=== PATIENT | female | born 2000 | race Caucasian/White ===

== ENCOUNTER 2023-02-01 16:21 | Emergency (ER) | payer OTHER, SELFPAY ==
[2023-02-01 16:28] VITALS: BP 132/71; PULSE 109; RESP 20; TEMP 36.9; O2SAT 99
--- NOTE | 2023-02-01 16:34 | ED.URI ---
HPI - URI/Sore Throat General Chief Complaint: Upper Respiratory Infection Stated Complaint: coughing/ear/trouble breathing Time Seen by Provider: 02/01/23 16:34 Source: patient Mode of arrival: ambulatory Limitations: no limitations History of Present Illness HPI Narrative: 22 y/o female presented for c/o sob with talking and walking up stairs since yesterday. Endorses sinus congestion and right ear pressure. Not taking anything for symptoms. Denies sick contacts. Denies cp, palpitations, fatigue, n/v/d/f/c. Related Data Allergies Allergy/AdvReac Type Severity Reaction Status Date / Time No Known Allergies Allergy Verified 02/01/23 16:46 Review of Systems Review of Systems: CONSTITUTIONAL: Denies body aches, fever, chills, or sweats. EYES: Denies visual changes, redness, or discharge. ENT: Reports rhinorrhea, congestion, Denies sore throat, or otalgia. CARDIOVASCULAR: Denies chest pain, palpitations, or edema. RESPIRATORY: Reports cough, sob, denies wheezing. GASTROINTESTINAL: Denies abdominal pain, nausea, vomiting, or diarrhea. GENITOURINARY: Denies dysuria or hematuria. SKIN: Denies rash, itching, or wounds. MUSCULOSKELETAL: Denies back pain, joint pain, or myalgia. NEUROLOGIC: Denies headache, numbness, tingling, or weakness. All systems reviewed & are unremarkable except as noted in HPI and below PMFSH Past Medical History Medical History (Updated 02/01/23 @ 17:11 by Chaparrita Mays, CONSTRUCTION OPERATIONS MANAGER) No pertinent past medical history Comments At time of signature, I have reviewed and agree with nursing past medical, surgical, social and family history unless otherwise noted. Please see nursing chart for further information. There is no relevant family history pertinent to the presenting complaint Exam Narrative: GENERAL: Well-appearing, in no acute distress. EYES: EOMI. No redness or drainage. Conjunctivae normal. ENT: Mucous membranes pink and moist. Significant nasal congestion TMs normal bilaterally. Throat normal. Uvula midline. NECK: Normal AROM. Supple. CHEST: No respiratory distress. Lungs clear to all [place]. No cough. HEART: Regular rate and rhythm. No murmur appreciated. ABDOMEN: Soft, nontender, nondistended, normal active bowel sounds. EXTREMITIES: Normal range of motion. No edema. SKIN: Warm, dry, no rash. Capillary refill normal. Normal skin turgor. NEURO: Alert and oriented x3. Gait steady. PSYCH: Normal affect. Course Course Emergency Course: Patient is aware of diagnosis, understands and agrees to treatment plan. Anticipatory guidance given. Patient agrees to follow-up as directed and is aware of reasons to seek care at the emergency department. Portions of this record may have been created with voice recognition software Level of Care: Express Care Visit Vital Signs Vital signs: Vital Signs Temperature 98.5 F 02/01/23 16:28 Pulse Rate 109 H 02/01/23 16:28 Respiratory Rate 20 02/01/23 16:28 Blood Pressure 132/71 02/01/23 16:28 Pulse Oximetry 99 02/01/23 16:28 Oxygen Delivery Room Air 02/01/23 16:28 Temperature 98.5 F 02/01/23 16:28 Pulse Rate 109 H 02/01/23 16:28 Respiratory Rate 20 02/01/23 16:28 Blood Pressure 132/71 02/01/23 16:28 Pulse Oximetry 99 02/01/23 16:28 Oxygen Delivery Room Air 02/01/23 16:28 MDM - URI/Sore Throat MDM Narrative Medical decision making narrative: Advised ER if she is feeling shortness of breath, however she states she will consider going later. She denies heart racing shortness of breath or rest. She is requesting a work note. She is overall well appearing. Discussed physical exam findings. Advised supportive measures and signs/symptoms to go to the ER. Pt is appropriate for outpt treatment and f/u. Differential Diagnosis Differential diagnosis: Likely upper respiratory infection, otitis media, sinusitis, viral infection, bronchitis, influenza and pharyngitis Discharge Plan Discha
== END 2023-02-01 16:47 | disposition home or self-care (01) ==
PROVIDERS: Emergency Provider Nurse Practitioner Family; PCP Pediatrics
DX: J06.9 Acute upper respiratory infection, unspecified (principal)
CPT/HCPCS: 99213; G0463

== ENCOUNTER 2023-08-27 13:51 | Emergency (ER) | payer OTHER, SELFPAY ==
[2023-08-27 14:05] VITALS: BP 155/73; PULSE 76; RESP 16; TEMP 36.8; O2SAT 96
--- NOTE | 2023-08-27 14:32 | ED.EAR ---
HPI - Ear Problem General Chief complaint: Ear Stated complaint: L ear pain Time Seen by Provider: 08/27/23 14:20 Source: patient, RN notes reviewed and old records reviewed Mode of arrival: ambulatory Limitations: no limitations History of Present Illness HPI Narrative: 22 year old female presents to [facility] care with friend and 3 children with complaints of 2 day history of left ear pain. Patient states some sinus congestion and drainage, denies any sore throat cough or any shortness of breath. Patient reports that she has not taken any OTC medications for her symptoms. Patient reports no known ill contacts no fevers, chills or body aches. MD Complaint: ear pain Location: left ear Duration: constant Severity: moderate Discharge from ear: Reports no Treatment prior to arrival: none Related Data Allergies Allergy/AdvReac Type Severity Reaction Status Date / Time No Known Allergies Allergy Verified 02/01/23 16:46 Review of Systems Review of Systems: CONSTITUTIONAL: Denies malaise, chills, sweats, or fever. EYES: Denies visual changes, redness, or discharge. ENT: Reports rhinorrhea, congestion, no sinus pain, left otalgia and no sore throat. CARDIOVASCULAR: Denies chest pain, palpitations, or edema. RESPIRATORY: Reports no cough.? Denies dyspnea. GASTROINTESTINAL: Denies abdominal pain, nausea, vomiting, diarrhea SKIN: Denies rash or itching. MUSCULOSKELETAL: Denies myalgia. NEUROLOGIC: Denies headache. All systems reviewed & are unremarkable except as noted in HPI and below PMFSH Past Medical History Medical History No pertinent past medical history Surgical History Surgical History History of cholecystectomy Hx of tonsillectomy Social History Social History Smoking status: Never smoker Alcohol intake: never Substance use: never Living arrangements: with family Gender identity (if verbalized by the patient): Female Comments At time of signature, agree with nursing past medical, surgical, social and family history. There is no relevant family history pertinent to the presenting complaint Exam Narrative: GENERAL: Well-appearing, well-nourished, obese,and in no acute distress. HEAD: Normocephalic EYES: PERRLA, conjunctivae clear ENT: Nares clear, turbinates edematous and erythematous, clear discharge. Mucous membranes moist.Left TM red and bulging. Right TM pearly matson with dull light reflex bilaterally; no tragal tenderness. Oropharynx erythematous without lesions. Tonsils not present and throat without exudate, no drooling, no hoarseness, no trismus, uvula midline. NECK: Supple. No lymphadenopathy CHEST: Clear to auscultation, breath sounds equal. No wheezing, rhonchi, rales, or stridor. No respiratory distress, speaks in full sentences.no cough noted SAO2 96% on room air HEART: Regular rate and rhythm. No murmur heard. SKIN: Warm, dry, no rash. NEURO: Alert and oriented x3. PSYCH: Normal mood and affect Course Course Emergency Course: Patient is aware of diagnosis, understands and agrees to treatment plan.? Anticipatory guidance given.? Patient agrees to follow-up as directed and is aware of reasons to seek care at the emergency department. Portions of this record may have been created with voice recognition software Level of Care: Express Care Visit Vital Signs Vital signs: Vital Signs Temperature 36.8 C 08/27/23 14:05 Pulse Rate 76 08/27/23 14:05 Respiratory Rate 16 08/27/23 14:05 Blood Pressure 155/73 H 08/27/23 14:05 Pulse Oximetry 96 08/27/23 14:05 Oxygen Delivery Room Air 08/27/23 14:05 Temperature 36.8 C 08/27/23 14:05 Pulse Rate 76 08/27/23 14:05 Respiratory Rate 16 08/27/23 14:05 Blood Pressure 155/73 H 08/27/23 14:05 Pulse Oximetry 96 0
== END 2023-08-27 14:41 | disposition home or self-care (01) ==
PROVIDERS: Emergency Provider Registered Nurse; PCP Pediatrics
DX: H66.92 Otitis media, unspecified, left ear (principal)
CPT/HCPCS: 99213; G0463

== ENCOUNTER 2023-12-17 13:43 | Emergency (ER) | payer OTHER, SELFPAY ==
[2023-12-17 13:50] VITALS: BP 147/76; PULSE 100; RESP 20; TEMP 38.3; O2SAT 98
--- NOTE | 2023-12-17 13:50 | ED.URI ---
HPI - URI/Sore Throat General Stated Complaint: covid positive History of Present Illness HPI Narrative: PATIENT PRESENTS TO URGENT CARE FOR A WORK NOTE. PATIENT STATES HE HAD A POSITIVE HOME COVID-19 TEST TODAY AND NEEDS A NOTE FOR WORK. PATIENT STATES HER SYMPTOMS HAVE BEEN GOING ON FOR 2 DAYS NO SHORTNESS OF BREATH NO CHEST PAIN. NASAL CONGESTION. MOM DOES REPORT NAUSEA BUT IS TOLERATING LIQUIDS WELL. NO DIARRHEA NO ABDOMINAL PAIN MOM STATES SHE IS 10 WEEKS BUT HAS NO -RELATED ISSUES. NO VAGINAL DISCHARGE NO VAGINAL BLEEDING NO ABDOMINAL PAIN NORMAL MOVEMENT. Related Data Allergies Allergy/AdvReac Type Severity Reaction Status Date / Time No Known Allergies Allergy Verified 02/01/23 16:46 Review of Systems Review of Systems: CONSTITUTIONAL: DENIES CHILLS, OR SWEATS. REPORTS FEVER AND GENERALIZED BODY ACHES EYES: DENIES VISUAL CHANGES, REDNESS, OR DISCHARGE. ENT: DENIES OTALGIA. REPORTS NASAL CONGESTION RUNNY NOSE AND SORE THROAT CARDIOVASCULAR: DENIES CHEST PAIN, PALPITATIONS, OR EDEMA. RESPIRATORY: DENIES DYSPNEA. REPORTS OCCASIONAL COUGH GASTROINTESTINAL: DENIES ABDOMINAL PAIN, NAUSEA, VOMITING, OR DIARRHEA. GENITOURINARY: DENIES DYSURIA OR HEMATURIA. SKIN: DENIES RASH OR ITCHING. MUSCULOSKELETAL: DENIES BACK PAIN, JOINT PAIN, OR MYALGIA. REPORTS GENERALIZED BODY ACHES NEUROLOGIC: DENIES HEADACHE, NUMBNESS, OR WEAKNESS. PSYCHIATRIC: DENIES ANXIETY OR DEPRESSION. [facility] Past Medical History Medical History No pertinent past medical history Surgical History Surgical History History of cholecystectomy Hx of tonsillectomy Social History Social History Smoking status: Never smoker Alcohol intake: never Substance use: never Living arrangements: with family Gender identity (if verbalized by the patient): Female Comments AT TIME OF SIGNATURE, AGREE WITH NURSING PAST MEDICAL, SURGICAL, SOCIAL AND FAMILY HISTORY. THERE IS NO RELEVANT FAMILY HISTORY PERTINENT TO THE PRESENTING COMPLAINT Exam Narrative: THE PATIENT IS A WELL-DEVELOPED, WELL-NOURISHED IN NO ACUTE DISTRESS. SKIN: SKIN IS WARM AND DRY WITHOUT ERYTHEMA, SWELLING OR EXUDATE. THERE IS GOOD TURGOR. NO TENTING. HEAD: ATRAUMATIC. NORMOCEPHALIC. NO TEMPORAL OR SCALP TENDERNESS. EYES: MOIST AND BRIGHT. SCLERA AND CONJUNCTIVAE NORMAL. NO DISCHARGE. PERRLA. EXTRAOCULAR MOTIONS INTACT. GROSS VISUAL ACUITY INTACT. EARS: PINNA IS NORMAL SHAPE AND CONTOUR. CLEAR EXTERNAL AUDITORY CANALS. TM PEARLY MARSH WITH GOOD CONE OF LIGHT, NO ERYTHEMA OR SUPPURATION. BILATERAL CERUMEN NOTED NO GROSS HEARING DEFICIT. NOSE: PINK, MOIST MUCOSA WITH GOOD AIR MOVEMENT. CLEAR RHINORRHEA WITHOUT NASAL FLARING. SEPTUM MIDLINE. MOUTH: MOIST MUCOUS MEMBRANES. THROAT; MILD ERYTHEMA NOTED TO POSTERIOR OROPHARYNX WITH MODERATE POSTNASAL DRAINAGE. WITHOUT EXUDATE OR ULCERATION.. UVULA MIDLINE. NORMAL MOVEMENT OF SOFT PALATE. NECK: SUPPLE AND NONTENDER WITH FULL RANGE OF MOTION WITHOUT DISCOMFORT. NO MENINGEAL SIGNS. LUNGS: EQUAL AND BILATERAL BREATH SOUNDS WITHOUT WHEEZES, RALES OR RHONCHI. CHEST: THE CHEST WALL IS WITHOUT RETRACTIONS OR USE OF ACCESSORY MUSCLES. HEART: HAS A REGULAR RATE AND RHYTHM WITHOUT MURMUR, GALLOPS, CLICK OR RUB. ABDOMEN: SOFT, NONTENDER WITH POSITIVE ACTIVE BOWEL SOUNDS. NO REBOUND TENDERNESS. EXTREMITIES: WITHOUT CYANOSIS, CLUBBING OR EDEMA. EQUAL 2+ DISTAL PULSES AND 2 SECOND CAPILLARY REFILL NOTED. NEUROLOGIC: ALERT, ACTIVE, . THE PATIENT MOVES ALL EXTREMITIES WITH NORMAL MUSCLE STRENGTH. NORMAL MUSCLE TONE IS NOTED. NORMAL COORDINATION IS NOTED. NO FOCAL NEUROLOGICAL FINDINGS NOTED. Course Course Level of Care: Express Care Visit Discharge Plan Discharge Clinical Impression: Positive self-administered antigen test for COVID-19 Patient Disposition: H
== END 2023-12-17 14:10 | disposition home or self-care (01) ==
PROVIDERS: Emergency Provider Nurse Practitioner Family; PCP Pediatrics
DX: O98.511 Other viral diseases complicating pregnancy, first trimester (principal); U07.1 COVID-19; Z3A.10 10 weeks gestation of pregnancy
CPT/HCPCS: 99213; G0463

== ENCOUNTER 2024-12-08 15:09 | Emergency (ER) | payer OTHER, SELFPAY ==
[2024-12-08 15:10] VITALS: BP 142/75; PULSE 97; RESP 20; TEMP 36.8; O2SAT 100
--- OUTSIDE RECORDS SUMMARY | 2024-12-08 15:11 | XMS_ITS | Clinical Summary ---
Author Organization [facility] Address [address] [place] [address] Phone Care Team Providers Care Er Medical Technician Name Role Phone Provider, None Primary Care Provider Unavailabl e Allergies No known active allergies Medications No known medications Social History Tobacco Use Types Packs/Day Years Used Date Smoking Tobacco: Never Smokeless Tobacco: Never Tobacco Cessation:Counseling Given: Not Answered Alcohol Use Standard Drinks/Week Comments Not Currently 0 (1 standard drink = 0.6 oz pur e alcohol) Sexually Active Control Partners Comments Yes Comments No Sex and Gender Information Value Date Recorded Sex Assigned at Not on file Legal Sex Female 6:55 PM CDT Gender Identity Not on file Sexual Orientation Not on file Last Filed Vital Signs Vital Sign Reading Time Taken Comments Blood Pressure 142/71 02/03/2023 9:46 PM CDT Pulse 91 02/03/2023 9:46 PM CDT Temperature 37.6 C (99.6 F) 02/03/2023 9:46 PM CDT Respiratory Rate 16 02/03/2023 9:46 PM CDT Oxygen Saturation 98% 02/03/2023 9:46 PM CDT Inhaled Oxygen Concentration - - Weight 81.6 kg (180 lb) 02/03/2023 7:04 PM CDT Height 167.6 cm (5' 6) 02/03/2023 7:04 PM CDT Body Mass Index 29.05 02/03/2023 7:04 PM CDT Plan of Treatment Health Maintenance Due Date Last Done Comments Hepatitis C Virus (HCV) Screening 2001 Meningococcal B Immunization (1 of 2 - Standard) 2017 Pap Smear 2022 SARS-COV-2 Immunization () 12/24/2023 02/16/2021, 01/19/2021 Influenza Immunization (#1) 2024 10/0 10/2020, 02/17/2020, 02/28/2019, Additional history exists Respiratory Syncytial Virus (RSV) Immunization (Adult) (1 - 1-dose 75+ series) 2076 Hepatitis B Immunization Completed 003, 01/23/2002, 2001 Pneumococcal Immunization Combined Aged Out 03/04/2003, 10/21/2002 No longer eligibl e based on patient's age to complete this topic Human Papillomavirus (HPV) Immunization Completed 08/28/2015, 04/28/2015, 02/26/2015 Meningococcal Immunization (ACWY) Completed 12/18/2017, 02/26/2015 DTaP/Tdap/Td Immunization Discontinued 2022, 08/29/2017, 06/11/2012, Additional history exists TdaP Immunization Completed 08/04/2022, , 06/11/2012 Rotavirus Immunization Aged Out No lo nger eligible based on patient's age to complete this topic Insurance MEDICAID [place] Care Teams Er Medical Technician Relationship Specialty Start Date End Date Provider, None [place] PCP - General 02/03/23
--- OUTSIDE RECORDS SUMMARY | 2024-12-08 15:11 | XMS_ITS | Clinical Summary ---
Author Organization [facility] Address [address] [place] [address] Care Team Providers Care Inkjet Operator Name Role Phone Jd Overton MD Unavailable [phone] No, Physician Primary Care Provider [phone] Allergies Active Allergy Reactions Criticality Noted Date Comments Gum Csaptx-Ggktac-Ysux-Alcohol Rash Medium 09/24/2024 No Known Allergies Other (See comments) Low Reaction: Medications No known medications Active Problems Problem Noted Date Diagnosed Date History of gestational diabetes 08/02/2024 Encounter for sterilization 06/26/2024 Moderate cervical dysplasia 02/25/2024 E. 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 I have discussed permanency, alternative contraception, 1% failure rate or less, risks of injury and incidence of regret. Risks of bleeding, infection, anesthesia, risks of injury to surrounding structures discussed. Patient desires laparoscopic bilateral salpingectomy for possible cancer reduction benefit. Nature of procedure and recovery discussed. Will consider 6 weeks . Resolved Problems Problem Noted Date Diagnosed Date Resolved Date Spontaneous vaginal delivery 06/23/2024 08/02/2024 39 weeks gestation of 06/23/2024 08/02/2024 Poor growth affecting management of mother in third trimester 06/07/2024 08/02/2024 Overview (06/19/2024): Suspected but dating by 16 wk US. Normal growth on most recent US. Diet controlled gestational diabetes mellitus (GDM) in third trimester 05/23/2024 08/02/2024 37 weeks gestation of 08/21/2022 01/17/2024 Cholecystitis, acute with cholelithiasis 05/09/2019 05/27/2019 Calculus of gallbladder with acute cholecystitis without obstruction 05/09/20192019 Overview (05/10/2019): Added automatically from request for surgery [id number] Encounters Date Type Department Care Team Description 09/24/2024 4:15 PM CDT Office Visit [facility] [address] [place] [address] [address] [place] [phone] Jd Overton MD Follow-up examination after gynecological surgery (Primary Dx); Moderate cervical dysplasia 09/09/2024 Telephone [facility] [address] [place] [address] [address] [place] [phone] Hemalatha Dixon RN Post Op Rash from Last 3 Months Immunizations Immunization Administration Dates Next Due Influenza, Trivalent, Preservative Free, Intramu scular 03/15/2024 MMR 06/24/2024,11/13/2020 Tdap 05/06/2024 Surgical History Surgery Date Site/Laterality Comments TONSILLECTOMY Tonsillectomy LAPAROSCOPIC CHOLECYSTECTOMY 05/11/2019 SALPINGECTOMY 09/04/2024 Bilateral Medical History Medical History Date Comments Hx Other Medical Tubes in Ears Gonorrhea treated Chlamydia treated Calculus of gallbladder with acute cholecystitis without obstruction 05/09/2019 Added automatically from request for surgery [id number] Family History Medical History Relation Name Comments Arthritis Mother Diabetes Mother's Brother Diabetes Mother's Sister Arthritis Other 1 Family history of Arthritis; Hypertension Other 2 Family history of Hypertension; Diabetes Other 3 Family history of Diabetes mellitus; Relation Name Status Comments Mother Mother's Brother Mother's Sister Other 1 Other 2 Other 3 Social History Tobacco Use Types Packs/Day Years Used Date Smoking Tobacco: Never Smokeless Tobacco: Never Tobacco Cessation:Counseling Given: Not Answered Alcohol Use Standard Drinks/Week Comments No 0 (1 standard drink = 0.6 oz pur e alcohol) Social Connection and Isolation Panel Answer Date Recorded In a typical week, how many times do you talk on the phone with family, friends, or neighbors? More than three times a week 06/22/2024 How often do you get togethe r with friends or relatives? More than three times a week 06/22/2024 How often do you attend chur ch or methodist services? Never 06/22/2024 Do you belong to any clubs o r organizations such as advent groups, unions, fraternal or athletic groups, or school groups? No 06/22/2024 How often do you attend meet ings of the clubs or organizations you belong to? Never 06/22/2024 Are you , , di vorced, , never , or living with a partner? Living with partner 06/22/2024 AUDIT-C Answer Date Recorded Q1: How often do you have a drink containing alcohol? Never 08/23/2024 Q2: How many drinks containi ng alcohol do you have on a typical day when you are drinking? Patient does not drink Q3: How often do you have si x or more drinks on one occasion? Never 08/23/2024 Overall Financial Resource Strain (CARDIA) Answe r Date Recorded How hard is it for you to pa y for the very basics like food, housing, medical care, and heating? Not hard at all 06/22/2024 PHQ-2 Answer Date Recorded PHQ-2 Total Score (If total score is 3 or more points, staff should administer the PHQ-9) 0 06/22/2024 [facility] - Occupational Stress Questionnaire Answer Date Recorded Do you feel stress - tense, restless, nervous, or anxious, or unable to sleep at night because your mind is troubled all the time - these days? Not at all 06/22/2024 Exercise Vital Sign Answer Date Recorde d On average, how many days pe r week do you engage in moderate to strenuous exercise (like a brisk walk)? 0 days 06/22/2024 On average, how many minutes do you engage in exercise at this level? 0 min 06/22/2024 Hunger Vital Sign Answer Date Recorded Within the past 12 months, y ou worried that your food would run out before you got the money to buy more. Never true 06/23/19 25 Within the past 12 months, t he food you bought just didn't last and you didn't have money to get more. Never true 06/22/2024 PRAPARE - Transportation Answer Date Re corded In the past 12 months, has l ack of transportation kept you from medical appointments or from getting medications? No 04/2024 In the past 12 months, has l ack of transportation kept you from meetings, work, or from getting things needed for daily living? No 06/22/2024 Housing Stability Vital Sign Answer Ari e Recorded In the last 12 months, was t here a time when you were not able to pay the mortgage or rent on time? No 08/21/2022 In the last 12 months, how many places have you lived? 1 08/21/2022 In the last 12 months, was t here a time when you did not have a steady place to sleep or slept in a detention (including now)? No 08/21/2022 Housing Stability Vital Sign Answer Ari e Recorded In the last 12 months, was t here a time when you were not able to pay the mortgage or rent on time? No 06/22/2024 In the past 12 months, how m any times have you moved where you were living? 0 06/22/2024 At any time in the past 12 m [facility], were you homeless or living in a detention (including now)? No 06/22/2024 Personal Safety Answer Date Recorded Have you ever been in or are you currently in a harmful physical or emotional relationship or is someone making you feel afraid or unsafe? 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 Gender Identity Not on file Sexual Orientation Not on file Obstetrics History Para Term AB IAB SAB Ectopic Multiple Livin g Live Births 4 4 4 0 4 4 Date Outcome GA Total Labor Labor/2nd/3rd Weight Sex Type Anes PTL Ellie A1 A5 Name Clin 2017 Term 41w 0d 6h 06m 5h 07m/0h 43m/0h 16m 3.357 kg (7 lb 6.4 oz) F Vag-Sp ont Epidur al N Livin g 8 9 GRAVE S,GIR LSAND Y Jesse r, Reji Moss MD Complications:None Delivery [facility] 2020 Term 40w 1d 1h 43m 1h 23m/0h 09m/0h 11m 2.892 kg (6 lb 6 oz) F Vag-Sp ont Epidur al N Livin g 8 9 GRAVE S,GIR LSAND Y Jesse r, Reji chou MD Complications:None Delivery [facility]) 2022 Term 37w 2d 0h 36m 0h 25m/0h 07m/0h 04m 2.619 kg (5 lb 12.4 oz) M Vag-Sp ont Epidur al N Livin g 8 9 GRAVE S,Dacia Lagunas DO Complications:Precipitous La bor (<3 hours) Delivery Location[facility]) 2024 Term 39w 1d 7h 34m 7h 28m/0h 02m/0h 04m 3.13 kg (6 lb 14.4 oz) F Vagina l Epidur al N Livin g 8 9 Sylvi a Noral ine Grave s Ted Resendiz MD Complications:None Delivery [facility]) Last Filed Vital Signs Vital Sign Reading Time Taken Comments Blood Pressure 124/76 09/24/2024 4:15 PM CDT Pulse 90 09/04/2024 11:34 AM CDT Temperature 36.7 C (98 F) 09/04/2024 11:34 AM CDT Respiratory Rate 18 09/04/2024 11:34 AM CDT Oxygen Saturation 100% 09/04/2024 11:34 AM CDT Inhaled Oxygen Concentration - - Weight 105.2 kg (232 lb) 09/24/2024 4:15 PM CDT Height 167.6 cm (5' 6) 09/24/2024 4:15 PM CDT Body Mass Index 37.45 09/24/2024 4:15 PM CDT Plan of Treatment Health Maintenance Due Date Last Done Comments Meningococcal B Vaccine (1 of 2 - Standard) 2017 Regular Well Visit/Exam 18-64 12/18/2019 Covid-19 Vaccine ( season) 2023 02/16/2021, 01/19/2021 Influenza Vaccine (#1) 2024 , 01/28/2021, 02/17/2020, Additional history exists Chlamydia and Gonorrhea (GC/CT) Screening 01/16/2025 01/17/2024, 08/21/2022, 05/09/2019 Depression Screening 06/22/2025 06/22/2024, 08/21/2022, 08/21/2022 Cervical Cancer Screening 08/02/2025 08/02/2024, DTaP/Tdap/Td Vaccine (10 - Td or Tdap) 05/06/2034 05/06/2024, 08/04/2022, 08/29/2017, Additional history exists Hepatitis B Screening Completed 10/21/2002 , 01/23/2002, 2001 Pneumococcal vaccine <65 Aged Out 003, 03/04/2003, 10/21/2002, Additional history exists No longer eligible based on patient's age to complete this topic Varicella Vaccines Completed 08/22/2006, 01/10/2003 HPV Vaccines Completed 08/28/2015, 08/2015, 02/26/2015 Hepatitis C Screening Completed 01/17/2024 Procedures Procedure Name Priority Date/Time Associated Diagnosis Comments PAP AND HPV, REFLEX TO HPV GENOTYPES Routine 08/02/2024 10:45 AM CDT Encounter for visit High grade squamous intraepithelial lesion on cytologic smear of cervix (HGSIL) HEPATITIS C ANTIBODY Routine 01/17/2024 11:43 AM CDT Encounter for supervision of other normal in first trimester N. GONORRHOEAE/C. TRACHOMATIS AMPLIFICATION Routine 01/17/2024 11:39 AM CDT from Last 3 Months or Most Recently Relevant to Health Maintenance Results * (ABNORMAL) Pap and HPV, reflex to HPV Genotypes (08/02/2024 10:45 AM CDT) CLINICAL INFORMATION: [facility] Comment:A LMP [facility] Comment:A Previous Pap [facility] Comment:NONE GIVEN Prev. Bx [facility] Comment:NONE GIVEN SOURCE: [facility] Comment:Cervix, Endocervix Pap, specimen adequacy [facility] Comment: Satisfactory for evaluation. Endocervical/transformation zone component present. Pap, general categorization (A) [facility] Comment:Cytology Results: Ep ithelial Cell Abnormality HPV interp (A) [facility] Comment:Low Grade Squamous I ntraepithelial Lesion (LSIL) COMMENTS [facility] Comment: This Pap test has been evaluated with computer assisted technology. Driver'S License Examiner [facility] Comment: SRR, CT(ASCP) CT Screening Location: [address] [address] Pathologist [facility] Comment: Toñito Alvares M.D., Board Certified in Anatomic Pathology and Clinical Pathology. (electronic signature) Comment [facility] Comment: EXPLANATORY NOTE: The Pap is a screening test for cervical cancer. It is not a diagnostic test and is subject to false negative and false positive results. It is most reliable when a satisfactory sample, regularly obtained, is submitted with relevant clinical findings and history, and when the Pap result is evaluated along with historic and current clinical information. Human papillomavirus DNA, High Risk E6/E7 Detected (A) NOT DETECTED [facility] Comment: Detected One or more High Risk HPV types (16,18,31,33, 35,39,45,51,52,56,58,59,66,68) was detected. Methodology: Real Time PCR Thin prep-Endocervica l 08/02/2024 10:45 AM CDT 08/05/2024 2:36 PM CDT Jd Overton MD LAB CYTOLOGY ORDERABLES Fi nal Result [facility] [address] [place] [address] * Hepatitis C antibody Blood (01/17/2024 11:43 AM CDT) Hep C Ab Nonreactive Nonreactive Comment: Interpretive Data Nonreactive: Antibodies to HCV not detected. Does NOT exclude the possibility of recent exposure to HCV. Equivocal: Equivocal for HCV antibodies. Supplemental molecular testing will be automatically performed to determine infection status in accordance with current CDC screening recommendations. Reactive: Positive for HCV antibodies. This may represent current or past HCV infection. Supplemental molecular testing will be automatically performed to determine current infection status in accordance with current CDC screening recommendations. Interpretive data was last revised on 2019. Testing performed by: [facility], [address] [place] [address]., [id number] Blood 01/17/2024 11:4 3 AM CDT 01/17/2024 4:12 PM CDT Jd Overton MD LAB MICROBIOLOGY - GENERAL ORDERABLES Final Result Performing Organization Address [facility] de Phone Number [facility] ([place]) [facility] Department of Laboratories [place] [id number] * N. gonorrhoeae/C. trachomatis Amplification (01/17/2024 11:39 AM CDT) Pathologist [facility] C. trachomatis RNA NOT DETECTED NOT DETECTED [facility] N. gonorrhoeae RNA NOT DETECTED NOT DETECTED [facility] Comment [facility] Comment: The analytical performance characteristics of this assay, when used to test SurePath(TM) specimens have been determined by [employer]. The modifications have not been cleared or approved by the FDA. This assay has been validated pursuant to the CLIA regulations and is used for clinical purposes. For additional information, please refer to https://education.[employer]/faq/SSS590 (This link is being provided for information/ educational purposes only.) 01/17/2024 11:3 9 AM CDT 01/18/2024 12:28 AM CDT Jd Ovetron MD LAB MICROBIOLOGY - GENERAL ORDERABLES Final Result Performing Organization Address City/[facility] Co de Phone Number [facility] [address] [place] [address] from Last 3 Months or Most Recently Relevant to Health Maintenance Insurance [facility] [address] [address] Advance Directives For more information, please contact: [phone] * Full Code (Latest Code Status on File) Date Activated Date Inactivated Comments 06/23/2024 4:57 AM 06/24/2024 5:18 PM * Full Code Date Activated Date Inactivated Comments 06/22/2024 6:59 AM 06/23/2024 4:57 AM Full CPR in ca se of cardiopulmonary arrest * Full Code Date Activated Date Inactivated Comments 08/21/2022 12:02 PM 08/22/2022 7:16 PM * Full Code Date Activated Date Inactivated Comments 08/21/2022 1:43 AM 08/21/2022 12:02 PM Full CPR in case of cardiopulmonary arrest * Full Code Date Activated Date Inactivated Comments 11/12/2020 6:40 PM 11/13/2020 9:23 PM Care Teams Inkjet Operator Relationship Specialty Start Date End Date No, Physician PCP - General 08/22/24 Jd Overton MD [address] [place] [address] DR CONNOR [address] [place] [id number] Column [facility] Obstetrics and Gynecology 06/24/24
--- NOTE | 2024-12-08 16:09 | ED_ITS ---
HPI - General Adult General Chief complaint: Upper Respiratory Infection Stated complaint: Sore Throat Source: patient Mode of arrival: ambulatory Limitations: no limitations History of Present Illness HPI narrative: Patient presents for evaluation of sore throat for last 2 days. She also had a headache and generalized body aches but those improved. She now has some nasal congestion. Her daughter tested positive for strep 5 days ago. Patient is taking Tylenol without much improvement in her symptoms. She does not smoke. No chills, cough, shortness of breath, nausea, vomiting, diarrhea. Related Data Allergies Allergy/AdvReac Type Severity Reaction Status Date / Time No Known Allergies Allergy Verified 12/08/24 15:13 Review of Systems Review of Systems: CONSTITUTIONAL: Denies fever, chills, or sweats. EYES: Denies visual changes, redness, or discharge. ENT: Reports sore throat and nasal congestion. Denies rhinorrhea or otalgia. CARDIOVASCULAR: Denies chest pain, palpitations, or edema. RESPIRATORY: Denies cough or dyspnea. GASTROINTESTINAL: Denies abdominal pain, nausea, vomiting, or diarrhea. GENITOURINARY: Denies dysuria or hematuria. SKIN: Denies rash or itching. MUSCULOSKELETAL: Reports recent generalized body aches, now improved. NEUROLOGIC: Reports recent headache, none currently. Denies numbness, dizziness, or weakness. PSYCHIATRIC: Denies anxiety or depression. [facility] Past Medical History Medical History No pertinent past medical history Surgical History Surgical History Hx of tonsillectomy History of cholecystectomy Family History Family History Mother Family history non-contributory Social History Social History Smoking status: Never smoker Alcohol intake: never Substance use: never Living arrangements: with family Gender identity (if verbalized by the patient): Female Exam Narrative: GENERAL: Well-appearing, well-nourished, and in no acute distress. HEAD: Normocephalic, atraumatic. EYES: PERRLA and EOMI. ENT: Nares clear, no rhinorrhea or epistaxis. Mucous membranes moist. Oropharynx without tonsillar hypertrophy exudate or other lesions. There is posterior pharyngeal erythema. Right tympanic membrane is bulging with visible air-fluid level present NECK: Supple. No adenopathy or masses. No carotid bruits or JVD CHEST: Clear to auscultation. No respiratory distress. No wheezes rales or rhonchi HEART: Regular rate and rhythm. No murmur heard. Normal peripheral pulses. ABDOMEN: Soft, nontender, nondistended, normal active bowel sounds. EXTREMITIES: Normal range of motion. No edema. SKIN: Warm, dry, no rash. NEURO: No focal deficits. Alert and oriented x3. PSYCH: Normal mood and affect. Course Course Emergency Course: This is a 23-year-old female who presented for evaluation of sore throat. Rapid strep positive. Treat with Augmentin. Increase hydration. Uxnm-puo-hafunzy agents for symptom management. Follow up with primary provider. Go to the ER for worsening symptoms. Patient in agreement with plan of care Level of Care: Express Care Visit Vital Signs Vital signs: Vital Signs Temperature 36.8 C 12/08/24 15:10 Pulse Rate 97 12/08/24 15:10 Respiratory Rate 12/08/24 15:10 Blood Pressure 142/75 H 12/08/24 15:10 Pulse Oximetry 100 12/08/24 15:10 Oxygen Delivery Room Air 12/08/24 15:10 Temperature 36.8 C 12/08/24 15:10 Pulse Rate 97 12/08/24 15:10 Respiratory Rate 12/08/24 15:10 Blood Pressure 142/75 H 12/08/24 15:10 Pulse Oximetry 100 12/08/24 15:10 Oxygen Delivery Room Air 12/08/24 15:10 Medical Decision Making Vital Signs Vital Signs: Vital Signs Temperature 36.8 C 12/08/24 15:10 Pulse Rate 97 12/08/24 15:10 Respiratory Rate 12/08/24 15:10 Blood Pressure 142/75 H 12/08/24 15:10 Pulse Oximetry 100 12/08/24 15:10 Oxygen Delivery Room Air 12/08/24 15:10 Temperature 36.8 C 12/08/24 15:10 Pulse Rate 97 12/08/24 15:10 Respiratory Rate 20 12/08/24 15:10 Blood Pressure 142/75 H 12/08/24 15:10 Pulse Oximetry 100 12/08/24 15:10 Oxygen Delivery Room Air 12/08/24 15:10 Discharge Plan Discharge Clinical Impression: Strep throat, Acute otitis media, right Patient Disposition: Home Condition: Stable Instructions: Antibiotic Form, Strep Throat (ED), Ear Infection (ED) Patient Language: Gabonese Prescriptions: New amoxicillin-pot clavulanate 875-125 mg tablet 1 tablet PO Q12H Qty: 20 0RF Follow-up/Referrals: Donnie Frank MD [Physician] - Time of Disposition: 16:08
== END 2024-12-08 16:11 | disposition home or self-care (01) ==
PROVIDERS: Emergency Provider Nurse Practitioner
DX: J02.9 Acute pharyngitis, unspecified (principal); H66.91 Otitis media, unspecified, right ear
CPT/HCPCS: 99213; G0463